=== PATIENT | female | born 1970 | race Caucasian/White ===

== ENCOUNTER → 2017-04-26 | Outpatient (CLI) | payer MEDICAID ==
--- NOTE | 2017-04-26 18:31 | US ---
EXAMINATION TYPE: US pelvic complete DATE OF EXAM: 04/26/2017 COMPARISON: NONE CLINICAL HISTORY: N93.8 Dysfunctional uterine bleeding. TECHNIQUE: Transabdominal (TA) Date of LMP: Patients menses has been irregular and more on than off since October. EXAM MEASUREMENTS: Uterus: 9.1 x 4.3 x 4.5 cm Endometrial Stripe: 0.7 cm Right Ovary: 3.5 x 2.4 x 2.8 cm Left Ovary: 3.0 x 2.2 x 2.0 cm 1. Uterus: Anteverted wnl 2. Endometrium: wnl 3. Right Ovary: simple appearing cyst measuring 2.2 x 2.4 x 2.1cm 4. Left Ovary: probable dominant follicle measuring 1.7 x 1.8 x 1.6cm 5. Posterior cul-de-sac: wnl IMPRESSION: Normal uterus and endometrium. No free fluid. Bilateral simple ovarian cysts.
== END | disposition home or self-care (01) ==
LOC: RADUSWWP 16:16
PROVIDERS: ATTEND Family Medicine
DX: N83.201 Unspecified ovarian cyst, right side (principal); N83.202 Unspecified ovarian cyst, left side
CPT/HCPCS: 76856

== ENCOUNTER → 2017-07-07 | Outpatient (CLI) | payer MEDICAID | END | disposition home or self-care (01) | LOC: LABWHC1 16:29 | PROVIDERS: ATTEND Family Medicine | DX: M35.00 Sjogren syndrome, unspecified (principal) | CPT/HCPCS: 36415; 85652; 86038 ==

== ENCOUNTER → 2017-08-02 | Outpatient (CLI) | payer MEDICAID ==
--- NOTE | 2017-08-03 11:10 | MM ---
Reason for exam: screening (asymptomatic). Last mammogram was performed 9 years and 6 months ago. History: Family history of breast cancer in mother. Physical Findings: A clinical breast exam by your physician is recommended on an annual basis and results should be correlated with mammographic findings. MG 3D Screening Mammo W/Cad Bilateral CC and MLO view(s) were taken. The breast tissue is heterogeneously dense. This may lower the sensitivity of mammography. Bilateral nodular asymmetries. Ultrasound recommended. ASSESSMENT: Incomplete: need additional imaging evaluation, BI-RAD 0 RECOMMENDATION: Ultrasound of both breasts. [facility] will attempt to contact patient to return for ultrasound.
== END | disposition home or self-care (01) ==
LOC: RADMAMWWP 06:57
PROVIDERS: ATTEND Family Medicine
DX: Z12.31 Encounter for screening mammogram for malignant neoplasm of breast (principal)
CPT/HCPCS: 77063; 77067

== ENCOUNTER → 2017-08-16 | Outpatient (CLI) | payer MEDICAID ==
--- NOTE | 2017-08-17 07:07 | USB ---
Reason for exam: additional evaluation requested from abnormal screening. History: Family history of breast cancer in mother. Physical Findings: Nurse Summary: all soft, nodular, movable, bilateral nodularity (nurse ts). US Breast Workup VANESSA Right breast ultrasound includes all four quadrants, the retroareolar region and axilla. Finding demonstrates a 0.2 x 0.7 x 0.2cm oval, cystic, benign lesion at 9 o'clock, a 1.1 x 1.5 x 0.7cm oval, cystic lesion at 9 o'clock that corresponds to mammographic mass, benign and ductal prominence at the posterior nipple. These results were verbally communicated with the patient and result sheet given to the patient on 08/16/17. ASSESSMENT: Benign, BI-RAD 2 RECOMMENDATION: Return to routine screening mammogram schedule for both breasts.
== END | disposition home or self-care (01) ==
LOC: RADUSWWP 15:48
PROVIDERS: ATTEND Family Medicine
DX: R92.8 Other abnormal and inconclusive findings on diagnostic imaging of breast (principal)

== ENCOUNTER → 2018-08-03 | Outpatient (CLI) | payer MEDICAID ==
[2018-08-03 08:36] LABS: Basophils % (A) 1 %; Eosinophils # (A) 0.1 k/uL (0-0.7); Eosinophils % (A) 3 %; HCT 41.2 % (34.0-46.0); HGB 13.5 gm/dL (11.4-16.0); Lymphocytes # (A) 1.7 k/uL (1.0-4.8); Lymphocytes % (A) 30 %; MCH 30.4 pg (25.0-35.0); MCHC 32.8 g/dL (31.0-37.0); MCV 92.7 fL (80.0-100.0); Mean Platelet Volume 7.2; Monocytes # (A) 0.3 k/uL (0-1.0); Monocytes % (A) 6 %; Neutrophils # (A) 3.3 k/uL (1.3-7.7); Neutrophils % (A) 57 %; Platelet Count 254 k/uL (150-450); RBC 4.44 m/uL (3.80-5.40); RDW 12.9 % (11.5-15.5); WBC 5.7 k/uL (3.8-10.6)
[2018-08-03 16:35] LABS: Albumin/Globulin Ratio 2.22 (1.60-3.17); Anion Gap 6.2 mmol/L (4.00-12.00); Calcium 8.8 mg/dL (8.7-10.3); Carbon Dioxide 26.8 mmol/L (21.6-31.8); Globulin 1.8 g/dL (1.6-3.3); Potassium 4.7 mmol/L (3.5-5.5); Total Bilirubin 0.3 mg/dL (0.2-1.2); Total Protein 5.8 g/dL (6.2-8.2)
== END | disposition home or self-care (01) ==
LOC: LABWHC1 07:47
PROVIDERS: ATTEND Family Medicine
DX: Z00.00 Encounter for general adult medical examination without abnormal findings (principal); E53.8 Deficiency of other specified B group vitamins; M35.00 Sjogren syndrome, unspecified; Z91.09 Other allergy status, other than to drugs and biological substances
CPT/HCPCS: 36415; 80053; 80061; 82607; 85025

== ENCOUNTER → 2018-08-24 | Outpatient (CLI) | payer MEDICAID ==
--- NOTE | 2018-08-25 11:52 | MM ---
Reason for exam: screening (asymptomatic). Last mammogram was performed 1 year and 1 month ago. History: Family history of breast cancer in mother. Physical Findings: A clinical breast exam by your physician is recommended on an annual basis and results should be correlated with mammographic findings. MG 3D Screening Mammo W/Cad Bilateral CC and MLO view(s) were taken. Prior study comparison: August 02, 2017, bilateral MG 3d screening mammo w/cad. The breast tissue is heterogeneously dense. This may lower the sensitivity of mammography. Enlarging circumscribed mass posterior upper outer quadrant right breast measuring 2.2cm, possible cyst. Otherwise, no significant change. ASSESSMENT: Incomplete: need additional imaging evaluation, BI-RAD 0 RECOMMENDATION: Ultrasound of the right breast. (upper outer quadrant) [facility] will attempt to contact patient to return for ultrasound.
== END | disposition home or self-care (01) ==
LOC: RADMAMWWP 16:55
PROVIDERS: ATTEND Family Medicine
DX: Z12.31 Encounter for screening mammogram for malignant neoplasm of breast (principal)
CPT/HCPCS: 77063; 77067

== ENCOUNTER → 2018-09-14 | Outpatient (CLI) | payer MEDICAID ==
--- NOTE | 2018-09-14 09:21 | USB ---
Reason for exam: additional evaluation requested from abnormal screening. History: Family history of breast cancer in mother. Physical Findings: Nurse Summary: all soft, nodular, movable, prominent nodularity (nurse ts). US Breast Workup Limited RT Right limited breast ultrasound including focal area of concern, retroareolar and axilla demonstrates a 2.5 x 0.9 x 1.9cm cystic lesion at 10 o'clock, corresponds with mammographic finding and a 0.6 x 0.4 x 0.5cm hypoechoic lesion at the posterior nipple, solid adjacent to duct ectasia for which a biopsy is recommended. These results were verbally communicated with the patient and result sheet given to the patient on 09/14/18. ASSESSMENT: Suspicious, BI-RAD 4 RECOMMENDATION: Ultrasound core biopsy of the right breast. Called with mammographic findings and has scheduled an appointment for the patient for 11/03/18 at 10:[address] Macias. Biopsy scheduled for 10/05/18 at 1 o'clock. PRELIMINARY REPORT CALLED AND FAXED TO DR. MACIAS ON 09/14/18.
== END | disposition home or self-care (01) ==
LOC: RADUSWWP 06:55
PROVIDERS: ATTEND Family Medicine
DX: R92.8 Other abnormal and inconclusive findings on diagnostic imaging of breast (principal)

== ENCOUNTER → 2018-10-05 | Day surgery (SDC) | payer MEDICAID ==
[2018-10-05 13:11] VITALS: RESP 16; BMI 62.4
[2018-10-05 14:02] VITALS: BP 148/86; PULSE 61; TEMP 98.1
--- NOTE | 2018-10-05 18:14 | USB ---
EXAMINATION TYPE: US biopsy breast VAD RT, MG post biopsy diagnostic mammo RT wo CAD DATE OF EXAM: 10/05/2018 CLINICAL HISTORY: 48-year-old female R92.8 ABN MAMMO. TECHNIQUE: Ultrasound guided core biopsy of the right breast. COMPARISON: 09/14/2018 and 08/24/2018 FINDINGS: The procedure of ultrasound guided core biopsy was explained to the patient. Benefits, alt ernatives, and risks were discussed. An informed consent was then obtained. Initial imaging redemonstrates the 9:00 subareolar 7 mm hypoechoic lesion, possibly intraductal. This was targeted for biopsy. The patient was placed in supine positioning for imaging and for the procedure. The overlying skin w as prepped and draped in usual sterile fashion. Lidocaine buffered with bicarbonate was used as anes thetic into the skin and subcutaneous tissue up to area of concern in the 9:00 subareolar right breas t. Under ultrasound guidance, a 13-gauge vacuum-assisted mammotome Elite biopsy gun was used to obtain 5 core samples. Following this, a coil clip was deposited. However, as the transducer was being withd rawn, we noted the coil clip adherent to the tip of the introducer. Subsequently, a second coil clip was satisfactorily deposited at the site of biopsy. The patient tolerated the procedure well without any immediate complication. The patient was kept in the radiology department for short stay after the procedure and then discharged home in stable condi tion. Postprocedure mammogram shows two lateral subareolar coil clips. The more anterior subareolar and sup eriorly positioned coil clip corresponds to the site of biopsy. The second more laterally positioned clip had migrated. IMPRESSION: Successful, uncomplicated ultrasound guided core biopsy of 7 mm 9:00 subareolar, possible intraductal nodule in the right breast. Note initial clip migration. A second coil clip was deposited and is loc ated more anterior, superior, and more subareolar in position. Full pathology results to follow.
== END ==
LOC: RADUSWWP 11:55
PROVIDERS: ATTEND Surgery
DX: D24.1 Benign neoplasm of right breast (principal)
CPT/HCPCS: 19083; 88305; 77065; A4648; J2001

== ENCOUNTER → 2018-10-19 | Outpatient (CLI) | payer MEDICAID | END | disposition home or self-care (01) | LOC: LABWHC1 14:49 | PROVIDERS: ATTEND Allergy & Immunology | DX: K52.9 Noninfective gastroenteritis and colitis, unspecified (principal) | CPT/HCPCS: 36415; 82784; 83516; 86255 ==

== ENCOUNTER 2019-05-05 08:08 | Day surgery (SDC) | payer MEDICAID ==
[2019-05-04 13:06] VITALS: BMI 27.4
[~2019-05-05 08:08] MED LIST: LACTATED RINGERS 1,000 ML IV SCH; LIDOCAINE 1% 20 ML VIAL (10MG/ML) FOR IV START INTRADERMA PRN
[2019-05-05 08:52] VITALS: RESP 16; TEMP 98.6
[2019-05-05] MEDS ORDERED: LACTATED RINGERS 1,000 ML IV ONE (09:01)
[2019-05-05] MEDS ORDERED: fentaNYL (PF) 50 MCG/ML 2 ML AMP ONE (09:32)
[2019-05-05] MEDS ORDERED: PROPOFOL 10 MG/ML 20 ML VIAL IV ONE (09:32)
[2019-05-05] MEDS ORDERED: MIDAZOLAM 2 MG/2 ML VIAL ONE (09:32)
[2019-05-05] MEDS ORDERED: LIDOCAINE 1% INJ 10MG/ML (20 ML MDV) ONE (09:32)
--- NOTE | 2019-05-05 09:57 | P.PCN ---
Date of Procedure: 05/05/19 Procedure(s) Performed: Brief history: Patient is a [id number] white female, scheduled for an elective upper endoscopy as well as colonoscopy as a part of evaluation of GERD/chronic cough and change in bowel habits with rectal urgency and frequency the last few months duration. Procedure performed: Esophagogastroduodenoscopy with biopsy Colonoscopy Preoperative diagnosis: GERD/chronic cough Change in bowel habits/rectal urgency Anesthesia: MAC Procedure: After informed consent was obtained from the patient was brought into the endoscopy unit and IV sedation was administered by anesthesia under continuous monitoring. Initially upper endoscopy was done. The Olympus GF 160 video endoscope was inserted inserted into the mouth and esophagus intubated without any difficulty and was gradually advanced into the stomach and duodenum and carefully examined. The bulb and second part of the duodenum appeared normal. The scope was then withdrawn into the stomach adequately insufflated with air and upon careful examination the antrum and mild gastritis and biopsies were done from this area. The body, cardia and fundus appeared normal. The scope was then withdrawn into the esophagus. The GE junction was located at 40 cm to the incisors. It appeared regular with no erythema erosions or ulcerations. biopsies were done from the distal esophagus. Rest of the esophagus appeared normal. Patient tolerated the procedure well. At this time the patient continued to remain sedation. Initial digital rectal examination was normal. Olympus CF 160 video colonoscope was then inserted into the rectum and gradually advanced to the cecum without any difficulty. Careful examination was performed as the scope was gradually being withdrawn. The prep was excellent. The cecum, ascending colon, transverse colon, descending colon, sigmoid colon and rectum appeared normal. Retroflexion was performed in the rectum and no lesions were noted. Patient tolerated the procedure well. Impression: 1. Upper endoscopy revealed mild antral gastritis but no evidence of esophagitis or peptic ulcer disease 2. Colonoscopy was essentially within normal limits with no evidence of colitis or colorectal neoplasia Recommendations: Findings of this examination were discussed with the patient as well as her family. She was advised to follow with the biopsy results. She can have a repeat screening colonoscopy in 10 years
[2019-05-05 10:22] VITALS: BP 119/80; PULSE 55
== END 2019-05-05 10:50 | disposition home or self-care (01) ==
LOC: ORWHC2ENDO 08:08
PROVIDERS: ATTEND Internal Medicine Gastroenterology
DX: K21.0 Gastro-esophageal reflux disease with esophagitis (principal); R15.2 Fecal urgency; K29.50 Unspecified chronic gastritis without bleeding; R05 Cough
CPT/HCPCS: 81025; 88305; 45378; 43239; J2250; J2001; J3010; J2704